=== PATIENT | female | born 1960 | race Caucasian/White ===

== ENCOUNTER 2022-02-18 00:52 | Emergency (ER) | payer OTHER, BC ==
[~2022-02-18] VITALS: Ht 162.6 cm; Wt 66.2 kg
[2022-02-18 01:07] VITALS: BP 128/64
--- NOTE | 2022-02-18 01:10 | NUR ---
PT TO BED 08.
--- NOTE | 2022-02-18 01:18 | NUR ---
RAD AT BEDSIDE
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
[2022-02-18] MEDS ORDERED: IBUPROFEN 400 MG TAB PO ONE (01:50)
--- NOTE | 2022-02-18 02:00 | NUR ---
ALFIE AMBULATED TO AND BACK TO BED 8
[2022-02-18] MEDS ORDERED: IBUP-2218 PO (02:31)
[2022-02-18 02:50] VITALS: BP 130/70
--- NOTE | 2022-02-18 02:50 | NUR ---
Patient discharged with v/s stable. Written and verbal after care instructions given ACUTE KNEE PAIN and explained. Patient alert, oriented and verbalized understanding of instructions. Ambulatory with steady gait. All questions addressed prior to discharge. ID band removed. Patient advised to follow up with PMD. Rx of IBUPROFEN given.
--- NOTE | 2022-02-18 03:04 | NUR ---
The patient's care was reviewed and supervised by Claritza Pretty RN.
== END 2022-02-18 02:50 | disposition home or self-care (01) ==
LOC: MED 00:52
DX: S89.92XA Unspecified injury of left lower leg, initial encounter (principal); Z79.899 Other long term (current) drug therapy; Z88.5 Allergy status to narcotic agent; V89.2XXA Person injured in unspecified motor-vehicle accident, traffic, initial encounter; Y93.89 Activity, other specified; Y92.89 Other specified places as the place of occurrence of the external cause; Y99.8 Other external cause status
CPT/HCPCS: 73562; 99283; Q0092